=== PATIENT | female | born 1990 | race Caucasian/White ===

== ENCOUNTER → 2024-10-20 10:40 | Outpatient (CLI) | payer OTHER, SELFPAY ==
[2024-10-20 11:36] LABS: Influenza A - CEPHEID Flu A NEGATIVE (NEGATIVE); Influenza B - CEPHEID Flu B NEGATIVE (NEGATIVE); Respiratory Syncytial Virus Negative (Negative)
[2024-10-20 11:40] LABS: COVID-19 CEPHEID 4-PLEX PCR Negative (Negative)
== END ==
PROVIDERS: Visit Provider Physician Assistant
DX: R05.9 Cough, unspecified (principal)
CPT/HCPCS: 0241U

== ENCOUNTER → 2024-10-20 10:47 | Outpatient (CLI) | payer OTHER, SELFPAY ==
--- NOTE | 2024-10-20 10:50 | DI.RAD.S_ITS ---
PROCEDURE: XR CHEST 2V INDICATIONS: acute cough TECHNIQUE: 2 views of the chest were acquired. COMPARISON: None. FINDINGS: Surgical changes and devices: None. Lungs and pleura: Faint left retrocardiac opacification, corresponding to the left lower lobe posterior segment. No pleural effusions or pneumothorax. Mediastinum: Prominence of the bilateral hilar regions, more conspicuous on the left. Mediastinal contours are otherwise normal. Heart size is normal. Bones and chest wall: No suspicious bony abnormalities. Soft tissues appear unremarkable. IMPRESSION: Faint left retrocardiac opacification, which may represent an underlying pneumonia with predominantly left hilar lymphadenopathy. Dictated by: Wilmer Horowitz M.D. on 10/20/2024 at 13:32 Approved by: Wilmer Horowitz M.D. on 10/20/2024 at 13:35
== END ==
PROVIDERS: PCP Family Medicine; Referring Provider Physician Assistant; Visit Provider Physician Assistant
DX: R05.1 Acute cough (principal)
CPT/HCPCS: 0241U; 71046